=== PATIENT | male | born 1975 | race Caucasian/White ===

== ENCOUNTER 2016-12-11 13:12 | Emergency (ER) | payer OTHER ==
--- NOTE | 2016-12-11 14:20 | EDDOCDS ---
Nurse's Notes [facility] Name: Ananth Teran Age: 41 yrs Sex: Male : 1975 Arrival Date: 12/11/2016 Time: 13:12 Bed TR7 Private MD: Vielka Goldstein Diagnosis: Acute pharyngitis, unspecified Presentation: 12/11 13:18 Presenting complaint: Patient states: Sore throat for about a week, cough today, ck1 headaches. Risk factors: Stridor is not present. Drooling is not present. Shortness of breath is not present. Cellulitis is not present. Adult Sepsis Screening: The patient does not have new or worsening altered mentation. Patient's respiratory rate is less than 22. Systolic blood pressure is greater than 100. Patient has a qSOFA score of 0- Negative Sepsis Screen. Suicide/Homicide risk assessment- the patient denies having any suicidal and/or homicidal ideations and does not present with any other emotional, behavioral or mental health complaints. Status: Patient is not a eligibility services representative or dependent. Transition of care: patient was not received from another setting of care. 13:18 Method Of Arrival: Walkin/Carried/Asstd ck1 13:18 Acuity: LOR Level 4 ck1 Triage Assessment: 13:22 General: Appears uncomfortable, Behavior is cooperative. Pain: Location: throat Pain ck1 currently is 6 out of 10 on a pain scale. HIV screening NA for this visit Offered previously. Neurological: No deficits noted. EENT: Reports pain in throat. Respiratory: Airway is patent Respiratory effort is even, unlabored. Derm: Skin is pink, warm & dry. Historical: - Allergies: Codeine Sulfate; MMR immunization; - Home Meds: 1. none - PMHx: none; - PSHx: jaw wired shut; - Social history: Smoking status: Patient states was never smoker of tobacco. No barriers to communication noted, The patient speaks fluent Korean. - Family history: Not pertinent. - : The pt / caregiver states he / she is not on anticoagulants. Home medication list is obtained from the patient. - Exposure Risk Screening:: None identified. Screenin:18 Screening information is obtained from the patient. Fall risk: No risks identified. ck1 Assistance ADL's: requires no assistance with activities of daily living. Abuse/DV Screen: The patient / caregiver reports he/she is: not in a situation that causes fear, pain or injury. Nutritional screening: No deficits noted. Advance Directives: Currently, there is no health care proxy. home support is adequate. Assessment: 14:19 General: Appears in no apparent distress, comfortable, Behavior is appropriate for age, ck1 cooperative. Neurological: Level of Consciousness is awake, alert, obeys commands, Oriented to person, place, time. Respiratory: Airway is patent Respiratory effort is unlabored, Respiratory pattern is regular, symmetrical. Derm: Skin is pink, warm & dry. Vital Signs: 13:16 BP 144 / 79; Pulse 98; Resp 18 S; Temp 97.9(O); Pulse Ox 99% on R/A; Weight 64.86 kg gr2 (R); Height 5 ft. 8 in. (172.72 cm) (M); Pain 5/10; 13:16 Body Mass Index 21.74 (64.86 kg, 172.72 cm) gr2 Vitals: 13:16 Log In Time: December 11, 2016 at 13:16. gr2 13:53 Strep Screen is obtained and tested: Negative, a GATSNEG culture is ordered in [facility] and sent. ED Course: 13:14 Patient visited by Tom Marc. gr2 13:14 Patient moved to Waiting gr2 13:15 Vielka Goldstein is Private Physician. gr2 13:18 Patient visited by Tom Marc. gr2 13:18 Patient moved to Pre RCE gr2 13:20 Triage Initiated ck1 13:23 Patient visited by Carley Dominguez,OZIEL. ck1 13:23 Patient moved to Triage 3 ck1 13:32 [facility]ant[facility]-C [facility] dt4 13:32 Abbey Hunt MD is Attending Physician. dt4 13:32 Patient visited by Elsa Alcantar PA-C. dt4 13:54 Patient visited by Carley Dominguez,OZIEL. ck1 13:54 GATS (NEGATIVE STREP SCREEN) Sent. ck1 14:07 Patient name changed from Ananth\S\\S\Parul\S\ to Ananth\S\Christopher\S\Parul. EDMS 14:08 [facility] Payment Agreement was scanned into [employer] and attached to record. lg 14:09 [facility] is Referral Physician. dt4 14:18 Patient moved to TR7 ck1 14:18 The patient / caregiver is instructed regarding the plan of care and ED course. ck1 14:18 No IV's were initiated during this patient's visit. No procedures done that require ck1 assistance. Order Results: There are currently no results for this order. Outcome: 14:09 Discharge ordered by Provider. dt4 14:18 Discharge Assessment: Patient awake, alert and oriented x 3. No cognitive and/or ck1 functional deficits noted. Patient verbalized understanding of disposition instructions. patient administered narcotics - no. The following High Risk Discharge criteria are identified: None. Discharged to home ambulatory. Condition: stable. Discharge instructions given to patient, Instructed on discharge instructions, follow up and referral plans. medication usage, Demonstrated understanding of instructions, medications, Pt was receptive of discharge instructions/ teaching. Prescriptions given X 1. No special radiology studies were completed. Property :Personal belongings accompany Pt. 14:19 Patient left the ED. ck1 Signatures: Dispatcher [employer] [facility] Dhara Huertas, RN RN Mirtha Alonso, Reg Reg Carley Amaral RN RN ck1 Tmo Marc gr2 Elsa Alcantar PA-C PA-C dt4 [facility]
--- NOTE | 2016-12-11 14:20 | EDDOCDS ---
Physician Documentation [facility] Name: Ananth Teran Age: 41 yrs Sex: Male : 1975 Arrival Date: 12/11/2016 Time: 13:12 Bed TR7 Private MD: Vielka Goldstein Disposition: 12/11/16 14:09 Discharged to Home/Self Care. Impression: Acute pharyngitis, unspecified. - Condition is Stable. - Discharge Instructions: Sore Throat. - Prescriptions for magic mouthwash Mucous Membrane Solution - as directed 5 milliliters by ORAL route 3-4 times daily As needed GARGLE, SWISH, SPIT. MAALOX, VISCOUS LIDOCAINE, LIQUID BENADRYL. 1:1:1; 237 milliliter. - Medication Reconciliation, Local Pharmacy Hours form. - Follow up: Emergency Department; When: As needed; Reason: Worsening of conditions. Follow up: [facility]; When: Call to arrange an appointment; Reason: Recheck today's complaints, Continuance of care, To establish care. - Problem is new. - Symptoms are unchanged. - Notes: YOUR STREP SCREEN WAS NEGATIVE TODAY. YOUR SYMPTOMS ARE MOST LIKELY CAUSED BY A VIRUS. PLEASE FOLLOW UP WITH YOUR PRIMARY CARE PROVIDER NEXT WEEK TO RECHECK YOUR SYMPTOMS. TYLENOL/MOTRIN DIRECTED, NEEDED FOR PAIN/FEVER. Historical: - Allergies: Codeine Sulfate; MMR immunization; - Home Meds: 1. none - PMHx: none; - PSHx: jaw wired shut; - Social history: Smoking status: Patient states was never smoker of tobacco. No barriers to communication noted, The patient speaks fluent Swiss. - Family history: Not pertinent. - : The pt / caregiver states he / she is not on anticoagulants. Home medication list is obtained from the patient. - Exposure Risk Screening:: None identified. Vital Signs: 12/11 13:16 BP 144 / 79; Pulse 98; Resp 18 S; Temp 97.9(O); Pulse Ox 99% on R/A; Weight 64.86 kg / gr2 142.99 lbs (R); Height 5 ft. 8 in. (172.72 cm) (M); Pain 5/10; 13:16 Body Mass Index 21.74 (64.86 kg, 172.72 cm) gr2 MDM: 13:32 Strep Screen, Nursing ordered. dt4 13:38 Financial registration complete. lg 13:54 GATS (NEGATIVE STREP SCREEN) Ordered. EDMS 14:08 [facility] Payment Agreement was scanned into [employer] and attached to record. lg Signatures: Dispatcher [employer]Host EDMS Mirtha Lopez, Reg Reg lg Carley DominguezRN RN ck1 Elsa Alcantar, JARED COLEMAN dt4 The chart was reviewed and I authenticate all verbal orders and agree with the evaluation and treatment provided.Attachments: 14:08 [facility] Payment Agreement lg MTDD
--- NOTE | 2016-12-13 15:21 | EDDOCDS ---
Physician Documentation [facility] Name: Ananth Teran Age: 41 yrs Sex: Male : 1975 Arrival Date: 12/11/2016 Time: 13:12 Bed TR7 Private MD: Vielka Goldstein Disposition: 12/11/16 14:09 Discharged to Home/Self Care. Impression: Acute pharyngitis, unspecified. - Condition is Stable. - Discharge Instructions: Sore Throat. - Prescriptions for magic mouthwash Mucous Membrane Solution - as directed 5 milliliters by ORAL route 3-4 times daily As needed GARGLE, SWISH, SPIT. MAALOX, VISCOUS LIDOCAINE, LIQUID BENADRYL. 1:1:1; 237 milliliter. - Medication Reconciliation, Local Pharmacy Hours form. - Follow up: Emergency Department; When: As needed; Reason: Worsening of conditions. Follow up: [facility]; When: Call to arrange an appointment; Reason: Recheck today's complaints, Continuance of care, To establish care. - Problem is new. - Symptoms are unchanged. - Notes: YOUR STREP SCREEN WAS NEGATIVE TODAY. YOUR SYMPTOMS ARE MOST LIKELY CAUSED BY A VIRUS. PLEASE FOLLOW UP WITH YOUR PRIMARY CARE PROVIDER NEXT WEEK TO RECHECK YOUR SYMPTOMS. TYLENOL/MOTRIN DIRECTED, NEEDED FOR PAIN/FEVER. Historical: - Allergies: Codeine Sulfate; MMR immunization; - Home Meds: 1. none - PMHx: none; - PSHx: jaw wired shut; - Social history: Smoking status: Patient states was never smoker of tobacco. No barriers to communication noted, The patient speaks fluent Dutch. - Family history: Not pertinent. - : The pt / caregiver states he / she is not on anticoagulants. Home medication list is obtained from the patient. - Exposure Risk Screening:: None identified. Vital Signs: 12/11 13:16 BP 144 / 79; Pulse 98; Resp 18 S; Temp 97.9(O); Pulse Ox 99% on R/A; Weight 64.86 kg / gr2 142.99 lbs (R); Height 5 ft. 8 in. (172.72 cm) (M); Pain 5/10; 13:16 Body Mass Index 21.74 (64.86 kg, 172.72 cm) gr2 MDM: 13:32 Strep Screen, Nursing ordered. dt4 13:38 Financial registration complete. lg 13:54 GATS (NEGATIVE STREP SCREEN) Ordered. EDMS 14:08 [facility] Payment Agreement was scanned into [employer] and attached to record. lg 12/13 08:51 T-Sheet-- Draft Copy was scanned into [employer] and attached to record. lg Signatures: Dispatcher [employer] EDIN Mirtha Lopez, Reg Reg lg Carley DominguezRN RN ck1 Elsa Alcantar, JARED PAKrystle dt4 The chart was reviewed and I authenticate all verbal orders and agree with the evaluation and treatment provided.Attachments: 12/11 14:08 [facility] Payment Agreement lg 12/13 08:51 T-Sheet-- Draft Copy lg Chart Complete MTDD
--- NOTE | 2016-12-13 15:21 | EDDOCDS ---
Nurse's Notes [facility] Name: Ananth Teran Age: 41 yrs Sex: Male : 1975 Arrival Date: 12/11/2016 Time: 13:12 Bed TR7 Private MD: Vielka Goldstein Diagnosis: Acute pharyngitis, unspecified Presentation: 12/11 13:18 Presenting complaint: Patient states: Sore throat for about a week, cough today, ck1 headaches. Risk factors: Stridor is not present. Drooling is not present. Shortness of breath is not present. Cellulitis is not present. Adult Sepsis Screening: The patient does not have new or worsening altered mentation. Patient's respiratory rate is less than 22. Systolic blood pressure is greater than 100. Patient has a qSOFA score of 0- Negative Sepsis Screen. Suicide/Homicide risk assessment- the patient denies having any suicidal and/or homicidal ideations and does not present with any other emotional, behavioral or mental health complaints. Status: Patient is not a manager financial services or dependent. Transition of care: patient was not received from another setting of care. 13:18 Method Of Arrival: Walkin/Carried/Asstd ck1 13:18 Acuity: LOR Level 4 ck1 Triage Assessment: 13:22 General: Appears uncomfortable, Behavior is cooperative. Pain: Location: throat Pain ck1 currently is 6 out of 10 on a pain scale. HIV screening NA for this visit Offered previously. Neurological: No deficits noted. EENT: Reports pain in throat. Respiratory: Airway is patent Respiratory effort is even, unlabored. Derm: Skin is pink, warm & dry. Historical: - Allergies: Codeine Sulfate; MMR immunization; - Home Meds: 1. none - PMHx: none; - PSHx: jaw wired shut; - Social history: Smoking status: Patient states was never smoker of tobacco. No barriers to communication noted, The patient speaks fluent Portuguese. - Family history: Not pertinent. - : The pt / caregiver states he / she is not on anticoagulants. Home medication list is obtained from the patient. - Exposure Risk Screening:: None identified. Screenin:18 Screening information is obtained from the patient. Fall risk: No risks identified. ck1 Assistance ADL's: requires no assistance with activities of daily living. Abuse/DV Screen: The patient / caregiver reports he/she is: not in a situation that causes fear, pain or injury. Nutritional screening: No deficits noted. Advance Directives: Currently, there is no health care proxy. home support is adequate. Assessment: 14:19 General: Appears in no apparent distress, comfortable, Behavior is appropriate for age, ck1 cooperative. Neurological: Level of Consciousness is awake, alert, obeys commands, Oriented to person, place, time. Respiratory: Airway is patent Respiratory effort is unlabored, Respiratory pattern is regular, symmetrical. Derm: Skin is pink, warm & dry. Vital Signs: 13:16 BP 144 / 79; Pulse 98; Resp 18 S; Temp 97.9(O); Pulse Ox 99% on R/A; Weight 64.86 kg gr2 (R); Height 5 ft. 8 in. (172.72 cm) (M); Pain 5/10; 13:16 Body Mass Index 21.74 (64.86 kg, 172.72 cm) gr2 Vitals: 13:16 Log In Time: December 11, 2016 at 13:16. gr2 13:53 Strep Screen is obtained and tested: Negative, a GATSNEG culture is ordered in [facility] and sent. ED Course: 13:14 Patient visited by Tom Marc. gr2 13:14 Patient moved to Waiting gr2 13:15 Vielka Goldstein is Private Physician. gr2 13:18 Patient visited by Tom Marc. gr2 13:18 Patient moved to Pre RCE gr2 13:20 Triage Initiated ck1 13:23 Patient visited by Carley Dominguez,OZIEL. ck1 13:23 Patient moved to Triage 3 ck1 13:32 Elsa Alcantar PA-C [facility]. dt4 13:32 Abbey Hunt MD is Attending Physician. dt4 13:32 Patient visited by Elsa Alcantar PA-C. dt4 13:54 Patient visited by Carley Dominguez,OZIEL. ck1 13:54 GATS (NEGATIVE STREP SCREEN) Sent. ck1 14:07 Patient name changed from Ananth\S\\S\Parul\S\ to Ananth\S\Christopher\S\Parul. EDMS 14:08 [facility] Payment Agreement was scanned into [email or web address] and attached to record. lg 14:09 [facility] is Referral Physician. dt4 14:18 Patient moved to TR ck1 14:18 The patient / caregiver is instructed regarding the plan of care and ED course. ck1 14:18 No IV's were initiated during this patient's visit. No procedures done that require ck1 assistance. 12/13 08:51 T-Sheet-- Draft Copy was scanned into [email or web address] and attached to record. lg Order Results: Lab Order: GATS (NEGATIVE STREP SCREEN); SPEC'M 12/11/16 13:12 Test: GATS CULTURE (NEG STREP SCR); Value: GATS RESULT NEGATIVE FOR STREP PYOGENES (GROUP A); Status: F Test: GATS CULTURE (NEG STREP SCR); Value: <EXTERNAL COMMENT eCWMed> FULL REPORT IN LAB NOTES (eCW and Medent).; Status: F Test: GATS CULTURE (NEG STREP SCR); Value: ORGANISM 1: STREP (GROUP F) CONSTELLATUS; Status: F Test: GATS CULTURE (NEG STREP SCR); Value: STREP (GROUP F) CONSTELLATUS; Status: F Test: GATS CULTURE (NEG STREP SCR); Value: QUANTITY OF GROWTH MODERATE; Status: F Outcome: 12/11 14:09 Discharge ordered by Provider. dt4 14:18 Discharge Assessment: Patient awake, alert and oriented x 3. No cognitive and/or ck1 functional deficits noted. Patient verbalized understanding of disposition instructions. patient administered narcotics - no. The following High Risk Discharge criteria are identified: None. Discharged to home ambulatory. Condition: stable. Discharge instructions given to patient, Instructed on discharge instructions, follow up and referral plans. medication usage, Demonstrated understanding of instructions, medications, Pt was receptive of discharge instructions/ teaching. Prescriptions given X 1. No special radiology studies were completed. Property :Personal belongings accompany Pt. 14:19 Patient left the ED. ck1 Signatures: Dispatcher [employer] JENNIFERDE Dhara Huertas, RN Mirtha Higginbotham mcp, Reg Reg lg Carley Dominguez RN RN ck1 Tom Marc gr2 Elsa Alcantar, JARED PAKrystle dt4 Chart Complete MTDD
--- NOTE | 2016-12-13 15:21 | EDDOCDS ---
Physician Documentation [facility] Name: Ananth Teran Age: 41 yrs Sex: Male : 1975 Arrival Date: 12/11/2016 Time: 13:12 Bed TR7 Private MD: Vielka Goldstein Disposition: 12/11/16 14:09 Discharged to Home/Self Care. Impression: Acute pharyngitis, unspecified. - Condition is Stable. - Discharge Instructions: Sore Throat. - Prescriptions for magic mouthwash Mucous Membrane Solution - as directed 5 milliliters by ORAL route 3-4 times daily As needed GARGLE, SWISH, SPIT. MAALOX, VISCOUS LIDOCAINE, LIQUID BENADRYL. 1:1:1; 237 milliliter. - Medication Reconciliation, Local Pharmacy Hours form. - Follow up: Emergency Department; When: As needed; Reason: Worsening of conditions. Follow up: [facility]; When: Call to arrange an appointment; Reason: Recheck today's complaints, Continuance of care, To establish care. - Problem is new. - Symptoms are unchanged. - Notes: YOUR STREP SCREEN WAS NEGATIVE TODAY. YOUR SYMPTOMS ARE MOST LIKELY CAUSED BY A VIRUS. PLEASE FOLLOW UP WITH YOUR PRIMARY CARE PROVIDER NEXT WEEK TO RECHECK YOUR SYMPTOMS. TYLENOL/MOTRIN DIRECTED, NEEDED FOR PAIN/FEVER. Historical: - Allergies: Codeine Sulfate; MMR immunization; - Home Meds: 1. none - PMHx: none; - PSHx: jaw wired shut; - Social history: Smoking status: Patient states was never smoker of tobacco. No barriers to communication noted, The patient speaks fluent Singaporean. - Family history: Not pertinent. - : The pt / caregiver states he / she is not on anticoagulants. Home medication list is obtained from the patient. - Exposure Risk Screening:: None identified. Vital Signs: 12/11 13:16 BP 144 / 79; Pulse 98; Resp 18 S; Temp 97.9(O); Pulse Ox 99% on R/A; Weight 64.86 kg / gr2 142.99 lbs (R); Height 5 ft. 8 in. (172.72 cm) (M); Pain 5/10; 13:16 Body Mass Index 21.74 (64.86 kg, 172.72 cm) gr2 MDM: 13:32 Strep Screen, Nursing ordered. dt4 13:38 Financial registration complete. lg 13:54 GATS (NEGATIVE STREP SCREEN) Ordered. EDMS 14:08 [facility] Payment Agreement was scanned into [employer] and attached to record. lg 12/13 08:51 T-Sheet-- Draft Copy was scanned into [employer] and attached to record. lg Signatures: Dispatcher [employer] EDCA Mirtha Lopez, Reg Reg lg Carley DominguezRN RN ck1 Elsa Alcantar, JARED PAKrystle dt4 The chart was reviewed and I authenticate all verbal orders and agree with the evaluation and treatment provided.Attachments: 12/11 14:08 [facility] Payment Agreement lg 12/13 08:51 T-Sheet-- Draft Copy lg Chart Complete MTDD
== END 2016-12-11 14:19 | disposition home or self-care (01) ==
LOC: M ED 13:12
DX: J02.9 Acute pharyngitis, unspecified (principal); Z88.5 Allergy status to narcotic agent; Z88.7 Allergy status to serum and vaccine

== ENCOUNTER → 2017-06-30 | Outpatient (REF) | payer OTHER ==
[2017-06-30 18:41] LABS: ANION GAP 5 MEQ/L (8-16); BLOOD UREA NITROGEN 12 MG/DL (7-18); CALCIUM LEVEL 9.1 MG/DL (8.5-10.1); CARBON DIOXIDE LEVEL 31 MEQ/L (21-32); CHLORIDE LEVEL 105 MEQ/L (98-107); CREATININE FOR GFR 0.68 MG/DL (0.70-1.30); GLOMERULAR FILTRATION RATE > 60.0 (>60); GLUCOSE, FASTING 85 MG/DL (70-105); POTASSIUM SERUM 4.3 MEQ/L (3.5-5.1); SODIUM LEVEL 141 MEQ/L (136-145)
== END ==
LOC: M SFHCPLAZ 16:57
PROVIDERS: ATTEND Family Medicine
DX: Z71.1 Person with feared health complaint in whom no diagnosis is made (principal); R35.8 Other polyuria; R35.1 Nocturia

== ENCOUNTER → 2017-09-08 | Outpatient (REF) | payer OTHER ==
[2017-09-08 12:39] LABS: INR 0.94
[2017-09-08 13:44] LABS: ALBUMIN/GLOBULIN RATIO 1.25 (1.00-1.93); ALKALINE PHOSPHATASE 67 U/L (45-117); ALT/SGPT 24 U/L (12-78); AST/SGOT 21 U/L (7-37); BILIRUBIN,DIRECT 0.3 MG/DL (0.0-0.2); BILIRUBIN,TOTAL 1.3 MG/DL (0.2-1.0); GAMMA GLUTAMYLTRANSPEPTIDASE 22 U/L (15-85); TOTAL PROTEIN 7.2 GM/DL (6.4-8.2)
[2017-09-11 00:06] LABS: HCV RNA NAA QUALITATIVE Negative (Negative)
== END ==
LOC: M SFHCPLAZ 10:44
PROVIDERS: ATTEND Family Medicine
DX: E80.6 Other disorders of bilirubin metabolism (principal)

== ENCOUNTER → 2017-09-17 | Outpatient (REF) | payer OTHER ==
[2017-09-17 15:49] LABS: OSMOLALITY URINE 862 MOSM/KG (500-800)
[2017-09-17 15:57] LABS: ALBUMIN 4.3 GM/DL (3.2-5.2); ALBUMIN/GLOBULIN RATIO 1.3 (1.00-1.93); BILIRUBIN,DIRECT 0.4 MG/DL (0.0-0.2); BILIRUBIN,TOTAL 2.6 MG/DL (0.2-1.0); TOTAL PROTEIN 7.6 GM/DL (6.4-8.2)
[2017-09-17 22:42] LABS: BACTERIA, URINE NONE SEEN; RBC, URINE 0-1 /hpf (0-3); SQUAMOUS EPITHELIAL CELL URINE NONE SEEN /hpf (SMALL AMT); WBC, URINE 0-1 /hpf (0-3)
[2017-09-17 22:43] LABS: CALCIUM OXALATE CRYSTALS,URINE SMALL AMOUNT /hpf; HYALINE CAST, URINE NONE SEEN /lpf (0-1); MICROSCOPIC EXAM PERFORMED
== END ==
LOC: M SFHCPLAZ 12:36
PROVIDERS: ATTEND Family Medicine
DX: E80.6 Other disorders of bilirubin metabolism (principal); R35.1 Nocturia

== ENCOUNTER → 2017-10-06 | Outpatient (REF) | payer MEDICAID ==
[2017-10-06 16:32] LABS: CALCIUM LEVEL 9.3 MG/DL (8.5-10.1)
== END ==
LOC: M SFHCPLAZ 13:18
PROVIDERS: ATTEND Family Medicine
DX: R35.1 Nocturia (principal); E80.6 Other disorders of bilirubin metabolism

== ENCOUNTER → 2017-10-09 | Outpatient (CLI) | payer MEDICAID, OTHER ==
--- NOTE | 2017-10-09 16:21 | REP ---
RENAL AND BLADDER ULTRASOUND: Real-time sonographic evaluation of the kidneys are performed and demonstrates both kidneys to be normal in size and echotexture, right kidney measuring 10.4 x 5.0 x 5.0 cm and left kidney 11.2 x 5.4 x 4.9 cm. There is no hydronephrosis bilaterally. There is a calculus in the mid right renal collecting system measuring 9 mm in diameter. There is a 9 mm cyst in the midright kidney. Two cysts are seen in the mid left kidney measuring 8 x 4 x 11 mm and 6 x 3 x 6 mm. Urinary bladder is not well distended and appears grossly unremarkable. IMPRESSION: No hydronephrosis. Small cyst in each kidney. There appears to be a calculus in the mid right renal collecting system 8 mm in diameter. Signed by Esvin Gonzalez MD 10/09/2017 08:43 P
== END ==
LOC: M RAD 14:29
PROVIDERS: ATTEND Family Medicine
DX: R35.1 Nocturia (principal); N28.1 Cyst of kidney, acquired

== ENCOUNTER → 2017-11-20 | Outpatient (CLI) | payer OTHER ==
[2017-11-22 08:07] LABS: HAPTOGLOBIN 58 mg/dL (34-200)
[2017-11-23 00:07] LABS: ANTI-SMOOTH MUSCLE ANTIBODY 28 Units (0-19)
== END ==
LOC: M SMT 12:55
DX: E80.6 Other disorders of bilirubin metabolism (principal)
CPT/HCPCS: 83010

== ENCOUNTER → 2017-12-01 | Outpatient (CLI) | payer OTHER | LOC: M RAD 12:36 | DX: N20.0 Calculus of kidney (principal) | CPT/HCPCS: 74176 ==

== ENCOUNTER → 2017-12-04 | Outpatient (CLI) | payer OTHER | LOC: M RAD 08:58 | DX: E80.6 Other disorders of bilirubin metabolism (principal) ==

== ENCOUNTER → 2018-01-01 | Outpatient (CLI) | payer OTHER | LOC: M SLEEP 19:41 | DX: G47.30 Sleep apnea, unspecified (principal) ==

== ENCOUNTER → 2018-01-13 | Outpatient (CLI) | payer OTHER | LOC: M RAD 11:13 | DX: I86.1 Scrotal varices (principal) | CPT/HCPCS: 76870 ==

== ENCOUNTER → 2018-02-01 | Outpatient (CLI) | payer OTHER | LOC: M SLEEP 20:00 | DX: G47.33 Obstructive sleep apnea (adult) (pediatric) (principal) | CPT/HCPCS: 95811 ==

== ENCOUNTER → 2018-04-21 | Outpatient (CLI) | payer OTHER ==
[2018-04-21 15:38] LABS: HEMATOCRIT 45.1 % (42.0-52.0); HEMOGLOBIN 16.2 g/dl (13.5-17.5); MEAN CORPUSCULAR HEMOGLOBIN 31.6 pg (27.0-33.0); MEAN CORPUSCULAR HGB CONC 35.9 g/dl (32.0-36.5); MEAN CORPUSCULAR VOLUME 87.9 fl (80.0-96.0); PLATELET COUNT, AUTOMATED 180 10^3/uL (150-450); RED BLOOD COUNT 5.13 10^6/uL (4.30-6.10); RED CELL DISTRIBUTION WIDTH 12.1 % (11.5-14.5); WHITE BLOOD COUNT 4.3 10^3/uL (4.0-10.0)
[2018-04-21 15:48] LABS: INR 0.95; PROTHROMBIN TIME 12.8 SECONDS (12.1-14.4)
[2018-04-21 15:49] LABS: PARTIAL THROMBOPLASTIN TIME 29.4 SECONDS (25.4-37.6)
[2018-04-21 16:04] LABS: ALBUMIN 3.9 GM/DL (3.2-5.2); ALBUMIN/GLOBULIN RATIO 1.18 (1.00-1.93); ALKALINE PHOSPHATASE 79 U/L (45-117); ALT/SGPT 30 U/L (12-78); AST/SGOT 25 U/L (7-37); BILIRUBIN,DIRECT 0.3 MG/DL (0.0-0.2); BILIRUBIN,TOTAL 1.6 MG/DL (0.2-1.0); GAMMA GLUTAMYLTRANSPEPTIDASE 24 U/L (15-85); LDH LACTATE DEHYDROGENASE 168 U/L (87-241); TOTAL PROTEIN 7.2 GM/DL (6.4-8.2)
[2018-04-22 10:55] LABS: HEPATITIS B SURFACE ANTIBODY NEGATIVE (POSITIVE)
[2018-04-22 11:00] LABS: HEPATITIS B SURFACE ANTIGEN NEGATIVE (NEGATIVE)
[2018-04-22 11:18] LABS: CONTROL LINE HPYORI INT CTR LINE PRESENT; H PYLORI QUALITATIVE IgG NEGATIVE (NEGATIVE)
[2018-04-22 11:27] LABS: HEPATITIS C VIRUS ABY INDEX 0.1 INDEX (<0.8)
== END ==
LOC: M LAB 14:57
DX: R94.5 Abnormal results of liver function studies (principal)
CPT/HCPCS: 82977

== ENCOUNTER → 2018-10-29 | Outpatient (REF) | payer OTHER ==
[2018-10-29 18:00] LABS: ALBUMIN 4.4 GM/DL (3.2-5.2); ALT/SGPT 20 U/L (12-78); BILIRUBIN,TOTAL 2.5 MG/DL (0.2-1.0); BLOOD UREA NITROGEN 12 MG/DL (7-18); CALCIUM LEVEL 9.1 MG/DL (8.5-10.1); CARBON DIOXIDE LEVEL 30 MEQ/L (21-32); CHLORIDE LEVEL 105 MEQ/L (98-107); CREATININE FOR GFR 0.74 MG/DL (0.70-1.30); GLOMERULAR FILTRATION RATE > 60.0 (>60); GLUCOSE, FASTING 79 MG/DL (70-100); SODIUM LEVEL 140 MEQ/L (136-145); TOTAL PROTEIN 7.5 GM/DL (6.4-8.2)
[2018-10-29 18:02] LABS: HEMATOCRIT 47.5 % (42.0-52.0); HEMOGLOBIN 16.7 g/dl (13.5-17.5); MEAN CORPUSCULAR HEMOGLOBIN 31.7 pg (27.0-33.0); MEAN CORPUSCULAR HGB CONC 35.2 g/dl (32.0-36.5); MEAN CORPUSCULAR VOLUME 90.1 fl (80.0-96.0); PLATELET COUNT, AUTOMATED 175 10^3/uL (150-450); RED BLOOD COUNT 5.27 10^6/uL (4.30-6.10)
[2018-11-01 00:06] LABS: ANTI-SMOOTH MUSCLE ANTIBODY 18 Units (0-19)
== END ==
LOC: M SFHCPLAZ 14:54
PROVIDERS: ATTEND Family Medicine
DX: S91.331A Puncture wound without foreign body, right foot, initial encounter (principal); E80.6 Other disorders of bilirubin metabolism; W18.30XA Fall on same level, unspecified, initial encounter; Y92.009 Unspecified place in unspecified non-institutional (private) residence as the place of occurrence of the external cause

== ENCOUNTER → 2019-02-23 | Outpatient (REF) | payer OTHER ==
[2019-02-23 12:22] LABS: C REACTIVE PROTEIN QUANTITATIV < 0.30 MG/DL (0.00-0.30); CHOLESTEROL LEVEL 226 MG/DL (<200); CHOLESTEROL RISK RATIO 4.264 (<5); FREE T3 3.3 PG/ML (2.2-4.0); FREE T4 0.76 NG/DL (0.76-1.46); HDL CHOLESTEROL 53 MG/DL (>40); LDL CHOLESTEROL 148 MG/DL (<100); NON-HDL-C 173 MG/DL; NT-PRO BNP 14 PG/ML (<125); THYROID STIMULATING HORMONE 0.968 uIU/ML (0.358-3.740); TRIGLYCERIDES LEVEL 123 MG/DL (<150)
== END ==
LOC: M SFHCPLAZ 09:12
PROVIDERS: ATTEND Family Medicine
DX: R06.09 Other forms of dyspnea (principal); R00.2 Palpitations; R07.9 Chest pain, unspecified

== ENCOUNTER 2019-11-23 08:00 | Emergency (ER) | payer OTHER ==
[2019-11-23] MEDS ORDERED: NS 1,000 ML IV ONE (08:30)
--- NOTE | 2019-11-23 09:14 | REP ---
Abdominal right upper quadrant ultrasound for right upper quadrant pain, flank pain and dark urine: There is no cholelithiasis, gallbladder wall thickening or pericholecystic fluid. There is tenderness to transducer pressure over the gallbladder. There is no intrahepatic or extrahepatic biliary duct dilatation. The common biliary duct measures 3 mm in diameter. The hepatic parenchyma is homogeneous and otherwise unremarkable. The visualized areas of the pancreas are unremarkable. Portions of the pancreas are obscured by bowel gas. The right kidney measures 11.2 x 6.0 x 5.0 cm and is normal size. The renal pelvis is mildly distended. This is nonspecific and could merely be secondary to a distended bladder. There are no renal calculi. There are no solid or cystic renal masses. There is no right upper quadrant ascites. Impression: There is no cholelithiasis. No evidence of cholecystitis by ultrasound. However, the gallbladder is tender to transducer pressure. No biliary duct dilatation. Mild distension of the renal pelvis, nonspecific. Electronically Signed by Esvin De La Fuente MD 11/23/2019 09:05 A
[2019-11-23 09:25] LABS: BASO % 0.5 % (0.0-1.0); EOS # 0.1 10^3/uL (0.0-0.5); EOS % 1.3 % (0.0-3.0); HEMATOCRIT 49.4 % (42.0-52.0); HEMOGLOBIN 17.3 g/dl (13.5-17.5); LYMPH # 1.4 10^3/uL (1.5-5.0); LYMPH % 25.6 % (24.0-44.0); MEAN CORPUSCULAR HEMOGLOBIN 31.6 pg (27.0-33.0); MEAN CORPUSCULAR VOLUME 90.3 fl (80.0-96.0); MONO # 0.3 10^3/uL (0.0-0.8); MONO % 6.1 % (0.0-5.0); NEUTROPHILS # 3.7 10^3/uL (1.5-8.5); NEUTROPHILS % 66.3 % (36.0-66.0); PLATELET COUNT, AUTOMATED 169 10^3/uL (150-450); RED BLOOD COUNT 5.47 10^6/uL (4.30-6.10); WHITE BLOOD COUNT 5.6 10^3/uL (4.0-10.0)
[2019-11-23 09:53] LABS: ALBUMIN 4.2 GM/DL (3.2-5.2); ALT/SGPT 18 U/L (12-78); AMYLASE 123 U/L (25-115); BILIRUBIN,DIRECT 0.3 MG/DL (0.0-0.2); BILIRUBIN,TOTAL 1.8 MG/DL (0.2-1.0); BLOOD UREA NITROGEN 9 MG/DL (7-18); CALCIUM LEVEL 9.1 MG/DL (8.5-10.1); CARBON DIOXIDE LEVEL 31 MEQ/L (21-32); CHLORIDE LEVEL 105 MEQ/L (98-107); CREATININE FOR GFR 0.77 MG/DL (0.70-1.30); GLOMERULAR FILTRATION RATE > 60.0 (>60); GLUCOSE, FASTING 90 MG/DL (70-100); LIPASE 274 U/L (73-393); SODIUM LEVEL 141 MEQ/L (136-145); TOTAL PROTEIN 7.2 GM/DL (6.4-8.2)
[2019-11-23] MEDS ORDERED: FLOM0.4C39 PO (10:35)
[2019-11-23] MEDS ORDERED: ONDA4TAB6 PO (10:35)
[2019-11-23] MEDS ORDERED: IBUP80TA PO (10:35)
--- NOTE | 2019-11-23 10:35 | REP ---
CT of the abdomen pelvis without IV or bowel contrast for right renal colic: Comparison is 12/01/2017. On the comparison study there was a 4 mm nonobstructing right renal calculus. On the study today this calculus has migrated into the right mid ureter to the L4 level. There is right hydronephrosis/hydroureter above the calculus. There are no other renal or ureteral calculi on the right on the left. No bladder calculi. No perinephric stranding. There is question of a right renal cyst as previously. The study is less sensitive in the absence of IV contrast. The visualized lung nolan are unremarkable. The unenhanced hepatic parenchyma, gallbladder, pancreas, spleen, adrenals and abdominal aorta are unremarkable. The bowel and mesentery are unremarkable. Pelvis: The appendix is unremarkable. There is no adenopathy or ascites. The pelvic bowel loops are unremarkable. Impression: There is a 4 mm calculus in the mid right ureter at the L4 level. There is hydronephrosis of the right ureter and right renal pelvis above the level of the calculus. Question small right renal cyst, as previously. Electronically Signed by Esvin De La Fuente MD 11/23/2019 10:27 A
[2019-11-23 10:43] VITALS: BP 123/78
[2019-11-23] MEDS ORDERED: KETOROLAC 30 MG/ML VIAL (J1885) IV ONE (10:45)
== END 2019-11-23 10:56 | disposition home or self-care (01) ==
LOC: M ED 08:00
DX: N20.1 Calculus of ureter (principal); N13.2 Hydronephrosis with renal and ureteral calculous obstruction; Z88.5 Allergy status to narcotic agent
CPT/HCPCS: 74176; 76705; 80048; 80076; 81001; 82150; 83690; 85025; 96361; 96374; 99284; J1885

== ENCOUNTER → 2019-12-23 | Outpatient (REF) | payer OTHER ==
[~2019-12-23] MED LIST: FLOM0.4C39 PO; IBUP80TA PO; ONDA4TAB6 PO
[2019-12-23 17:56] LABS: APPEARANCE, URINE CLEAR (CLEAR); BACTERIA, URINE AUTO 1+ (NEGATIVE); BILIRUBIN, URINE AUTO NEGATIVE (NEGATIVE); BLOOD, URINE BLOOD NEGATIVE (NEGATIVE); COLOR, URINE YELLOW (YELLOW); GLUCOSE, URINE (UA) AUTO NEGATIVE (NEGATIVE); KETONE, URINE AUTO NEGATIVE (NEGATIVE); LEUKOCYTE ESTERASE, URINE AUTO NEGATIVE (NEGATIVE); MUCUS, URINE SMALL (NEGATIVE); NITRITE, URINE AUTO NEGATIVE (NEGATIVE); PROTEIN, URINE AUTO NEGATIVE (NEGATIVE); RBC, URINE AUTO 5 /HPF (0-3); SPECIFIC GRAVITY URINE AUTO 1.006 (1.002-1.035); SQUAMOUS EPITHELIAL CELL UR AU 0 /HPF (0-6); UROBILINOGEN, URINE AUTO 0.2 mg/dL (0.0-2.0); WBC, URINE AUTO 3 /HPF (0-3)
== END ==
LOC: M SMT 17:13
PROVIDERS: ATTEND Nurse Practitioner Family
DX: N20.0 Calculus of kidney (principal)

== ENCOUNTER → 2019-12-23 | Outpatient (CLI) | payer OTHER ==
--- NOTE | 2019-12-23 19:42 | REPPI ---
KUB ABDOMEN AND PELVIS: KUB film of abdomen and pelvis performed. Bowel gas pattern is normal with no bowel obstruction. There is a calculus in the distal right ureter at the level of the mid pelvis which measures 3 to 4 mm in diameter. There is a phlebolith in the lateral left pelvis. There is partial sacralization of L5 on the right. IMPRESSION: 4 mm calculus distal right ureter. Electronically Signed by Esvin Gonzalez MD 12/28/2019 03:05 P
== END ==
LOC: M PLAIMG 14:59
PROVIDERS: ATTEND Nurse Practitioner Family
DX: N20.1 Calculus of ureter (principal)

== ENCOUNTER → 2019-12-29 | Outpatient (REF) | payer OTHER ==
[2019-12-29 17:25] LABS: HEMATOCRIT 44.9 % (42.0-52.0); HEMOGLOBIN 15.9 g/dl (13.5-17.5); MEAN CORPUSCULAR HEMOGLOBIN 32.1 pg (27.0-33.0); MEAN CORPUSCULAR HGB CONC 35.4 g/dl (32.0-36.5); MEAN CORPUSCULAR VOLUME 90.5 fl (80.0-96.0); PLATELET COUNT, AUTOMATED 167 10^3/uL (150-450); RED BLOOD COUNT 4.96 10^6/uL (4.30-6.10); WHITE BLOOD COUNT 5.6 10^3/uL (4.0-10.0)
[2019-12-29 17:28] LABS: APPEARANCE, URINE CLEAR (CLEAR); BACTERIA, URINE AUTO NEGATIVE (NEGATIVE); BILIRUBIN, URINE AUTO NEGATIVE (NEGATIVE); BLOOD, URINE BLOOD 2+ (NEGATIVE); COLOR, URINE STRAW (YELLOW); GLUCOSE, URINE (UA) AUTO NEGATIVE (NEGATIVE); KETONE, URINE AUTO NEGATIVE (NEGATIVE); LEUKOCYTE ESTERASE, URINE AUTO NEGATIVE (NEGATIVE); MUCUS, URINE SMALL (NEGATIVE); NITRITE, URINE AUTO NEGATIVE (NEGATIVE); PROTEIN, URINE AUTO NEGATIVE (NEGATIVE); RBC, URINE AUTO 1 /HPF (0-3); SPECIFIC GRAVITY URINE AUTO 1.002 (1.002-1.035); SQUAMOUS EPITHELIAL CELL UR AU 0 /HPF (0-6); UROBILINOGEN, URINE AUTO 0.2 mg/dL (0.0-2.0); WBC, URINE AUTO 1 /HPF (0-3)
[2019-12-29 17:41] LABS: INR 0.98; PROTHROMBIN TIME 12.7 SECONDS (11.8-14.0)
[2019-12-29 17:42] LABS: PARTIAL THROMBOPLASTIN TIME 27.7 SECONDS (25.0-38.4)
[2019-12-29 18:19] LABS: BLOOD UREA NITROGEN 8 MG/DL (7-18); CALCIUM LEVEL 9.4 MG/DL (8.5-10.1); CARBON DIOXIDE LEVEL 31 MEQ/L (21-32); CHLORIDE LEVEL 102 MEQ/L (98-107); CREATININE FOR GFR 0.64 MG/DL (0.70-1.30); GLOMERULAR FILTRATION RATE > 60.0 (>60); GLUCOSE, FASTING 69 MG/DL (70-100); POTASSIUM SERUM 3.6 MEQ/L (3.5-5.1); SODIUM LEVEL 138 MEQ/L (136-145)
== END ==
LOC: M LABSMT 15:46
PROVIDERS: ATTEND Nurse Practitioner Family
DX: Z01.818 Encounter for other preprocedural examination (principal); N20.0 Calculus of kidney

== ENCOUNTER → 2019-12-31 | Outpatient (REF) | payer OTHER | LOC: M SMT 16:50 | PROVIDERS: ATTEND Nurse Practitioner Family | DX: N20.0 Calculus of kidney (principal) ==

== ENCOUNTER → 2020-02-04 | Outpatient (REF) | payer OTHER, MEDICAID ==
[2020-02-04 12:52] LABS: BASO % 0.7 % (0.0-1.0); EOS # 0.1 10^3/uL (0.0-0.5); EOS % 1.9 % (0.0-3.0); HEMATOCRIT 45.7 % (42.0-52.0); HEMOGLOBIN 16.3 g/dl (13.5-17.5); LYMPH # 1.4 10^3/uL (1.5-5.0); LYMPH % 31.9 % (24.0-44.0); MEAN CORPUSCULAR HGB CONC 35.7 g/dl (32.0-36.5); MEAN CORPUSCULAR VOLUME 89.6 fl (80.0-96.0); MONO # 0.3 10^3/uL (0.0-0.8); MONO % 6.8 % (0.0-5.0); NEUTROPHILS # 2.5 10^3/uL (1.5-8.5); NEUTROPHILS % 58.5 % (36.0-66.0); PLATELET COUNT, AUTOMATED 178 10^3/uL (150-450); WHITE BLOOD COUNT 4.3 10^3/uL (4.0-10.0)
[2020-02-04 13:26] LABS: ALBUMIN 4.1 GM/DL (3.2-5.2); ALT/SGPT 27 U/L (12-78); BILIRUBIN,TOTAL 1.7 MG/DL (0.2-1.0); BLOOD UREA NITROGEN 7 MG/DL (7-18); CALCIUM LEVEL 9.2 MG/DL (8.5-10.1); CARBON DIOXIDE LEVEL 31 MEQ/L (21-32); CHLORIDE LEVEL 104 MEQ/L (98-107); CHOLESTEROL LEVEL 216 MG/DL (<200); CHOLESTEROL RISK RATIO 4.075 (<5); CREATININE FOR GFR 0.68 MG/DL (0.70-1.30); GLOMERULAR FILTRATION RATE > 60.0 (>60); GLUCOSE, FASTING 90 MG/DL (70-100); HDL CHOLESTEROL 53 MG/DL (>40); LDL CHOLESTEROL 123 MG/DL (<100); NON-HDL-C 163 MG/DL; POTASSIUM SERUM 4.1 MEQ/L (3.5-5.1); SODIUM LEVEL 139 MEQ/L (136-145); TOTAL PROTEIN 7.5 GM/DL (6.4-8.2); TRIGLYCERIDES LEVEL 200 MG/DL (<150)
== END ==
LOC: M LAB REF 12:37
PROVIDERS: ATTEND Physician Assistant
DX: Z13.228 Encounter for screening for other metabolic disorders (principal); Z13.220 Encounter for screening for lipoid disorders; Z87.442 Personal history of urinary calculi; J06.9 Acute upper respiratory infection, unspecified; M26.622 Arthralgia of left temporomandibular joint

== ENCOUNTER → 2020-08-03 | Outpatient (REF) | payer OTHER, MEDICAID ==
[2020-08-03 13:14] LABS: ALBUMIN 3.9 GM/DL (3.2-5.2); ALT/SGPT 28 U/L (12-78); BILIRUBIN,TOTAL 1.7 MG/DL (0.2-1.0); BLOOD UREA NITROGEN 8 MG/DL (7-18); CALCIUM LEVEL 9.4 MG/DL (8.5-10.1); CARBON DIOXIDE LEVEL 30 MEQ/L (21-32); CHLORIDE LEVEL 107 MEQ/L (98-107); CHOLESTEROL LEVEL 157 MG/DL (<200); CHOLESTEROL RISK RATIO 2.854 (<5); CREATININE FOR GFR 0.84 MG/DL (0.70-1.30); GLOMERULAR FILTRATION RATE > 60.0 (>60); GLUCOSE, FASTING 106 MG/DL (70-100); HDL CHOLESTEROL 55 MG/DL (>40); LDL CHOLESTEROL 81 MG/DL (<100); NON-HDL-C 102 MG/DL; POTASSIUM SERUM 4.2 MEQ/L (3.5-5.1); SODIUM LEVEL 142 MEQ/L (136-145); TRIGLYCERIDES LEVEL 104 MG/DL (<150)
[2020-08-03 17:12] LABS: TOTAL 25(OH) VITAMIN D 28.6 NG/ML (30.0-100.0)
== END ==
LOC: M LAB REF 12:28
PROVIDERS: ATTEND Physician Assistant
DX: E55.9 Vitamin D deficiency, unspecified (principal); E78.00 Pure hypercholesterolemia, unspecified; E80.4 Gilbert syndrome

== ENCOUNTER → 2021-02-14 | Outpatient (REF) | payer OTHER, MEDICAID ==
[2021-02-14 17:11] LABS: ALBUMIN 4.2 GM/DL (3.2-5.2); ALT/SGPT 34 U/L (12-78); BILIRUBIN,TOTAL 2.5 MG/DL (0.2-1.0); BLOOD UREA NITROGEN 11 MG/DL (7-18); CALCIUM LEVEL 9.1 MG/DL (8.5-10.1); CARBON DIOXIDE LEVEL 32 MEQ/L (21-32); CHLORIDE LEVEL 104 MEQ/L (98-107); CHOLESTEROL LEVEL 187 MG/DL (<200); CHOLESTEROL RISK RATIO 2.921 (<5); CREATININE FOR GFR 0.64 MG/DL (0.70-1.30); GLOMERULAR FILTRATION RATE > 60.0 (>60); GLUCOSE, FASTING 74 MG/DL (70-100); HDL CHOLESTEROL 64 MG/DL (>40); LDL CHOLESTEROL 115 MG/DL (<100); NON-HDL-C 123 MG/DL; POTASSIUM SERUM 4.3 MEQ/L (3.5-5.1); SODIUM LEVEL 140 MEQ/L (136-145); TOTAL PROTEIN 7.5 GM/DL (6.4-8.2); TRIGLYCERIDES LEVEL 41 MG/DL (<150)
[2021-02-14 17:34] LABS: TOTAL 25(OH) VITAMIN D 17.2 NG/ML (30.0-100.0)
== END ==
LOC: M LAB REF 16:01
PROVIDERS: ATTEND Physician Assistant
DX: E78.5 Hyperlipidemia, unspecified (principal)

== ENCOUNTER 2021-04-16 19:03 | Emergency (ER) | payer MEDICAID, OTHER ==
[~2021-04-16] VITALS: Ht 170.2 cm; Wt 64.2 kg
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
[2021-04-16] MEDS ORDERED: NAPR-837 PO (23:09)
[2021-04-16] MEDS ORDERED: CYCL-707 PO (23:09)
[2021-04-16 23:21] VITALS: BP 118/80
== END 2021-04-16 23:31 | disposition home or self-care (01) ==
LOC: M ED 19:03
DX: S50.312A Abrasion of left elbow, initial encounter (principal); S09.90XA Unspecified injury of head, initial encounter; S13.4XXA Sprain of ligaments of cervical spine, initial encounter; W19.XXXA Unspecified fall, initial encounter; Y92.89 Other specified places as the place of occurrence of the external cause; Y93.55 Activity, bike riding; Y99.9 Unspecified external cause status; Z88.5 Allergy status to narcotic agent

== ENCOUNTER → 2021-06-15 | Outpatient (CLI) | payer OTHER ==
[~2021-06-15] MED LIST changes: +CYCL-707 PO; +NAPR-837 PO
[2021-06-15 16:38] LABS: APPEARANCE, URINE CLEAR (CLEAR); BACTERIA, URINE AUTO NEGATIVE (NEGATIVE); BILIRUBIN, URINE AUTO NEGATIVE (NEGATIVE); BLOOD, URINE BLOOD NEGATIVE (NEGATIVE); CALCIUM OXALATE CRYSTALS SMALL; COLOR, URINE YELLOW (YELLOW); GLUCOSE, URINE (UA) AUTO NEGATIVE (NEGATIVE); KETONE, URINE AUTO TRACE mg/dL (NEGATIVE); LEUKOCYTE ESTERASE, URINE AUTO NEGATIVE (NEGATIVE); MUCUS, URINE SMALL (NEGATIVE); NITRITE, URINE AUTO NEGATIVE (NEGATIVE); PROTEIN, URINE AUTO NEGATIVE (NEGATIVE); RBC, URINE AUTO 2 /HPF (0-3); SPECIFIC GRAVITY URINE AUTO 1.024 (1.002-1.035); SQUAMOUS EPITHELIAL CELL UR AU 0 /HPF (0-6); WBC, URINE AUTO 1 /HPF (0-3)
[2021-06-15 17:43] LABS: BILIRUBIN,DIRECT 0.4 MG/DL (0.0-0.2)
== END ==
LOC: M LAB 15:24
PROVIDERS: ATTEND Physician Assistant
DX: E80.4 Gilbert syndrome (principal); R32 Unspecified urinary incontinence

== ENCOUNTER → 2022-07-09 | Outpatient (CLI) | payer OTHER | LOC: M PLALAB 12:22 | PROVIDERS: ATTEND Allergy & Immunology Allergy | DX: T78.1XXA Other adverse food reactions, not elsewhere classified, initial encounter (principal) ==

== ENCOUNTER → 2025-01-14 | Outpatient (CLI) | payer OTHER ==
[~2025-01-14] MED LIST changes: +ONDA-282 PO; -ONDA4TAB6 PO
[2025-01-14 14:17] LABS: EOS % 0.3 % (0.0-3.0); HEMATOCRIT 46.4 % (42.0-52.0); HEMOGLOBIN 16.2 g/dl (13.5-17.5); LYMPH # 1.3 10^3/uL (1.5-5.0); LYMPH % 34.4 % (24.0-44.0); MEAN CORPUSCULAR HEMOGLOBIN 32.9 pg (27.0-33.0); MEAN CORPUSCULAR HGB CONC 34.9 g/dl (32.0-36.5); MEAN CORPUSCULAR VOLUME 94.1 fl (80.0-96.0); MONO # 0.3 10^3/uL (0.0-0.8); MONO % 6.5 % (2.0-8.0); NEUTROPHILS # 2.2 10^3/uL (1.5-8.5); NEUTROPHILS % 57.5 % (36.0-66.0); PLATELET COUNT, AUTOMATED 161 10^3/uL (150-450); RED BLOOD COUNT 4.93 10^6/uL (4.30-6.10); WHITE BLOOD COUNT 3.9 10^3/uL (4.0-10.0)
== END ==
LOC: M WUC 12:24
PROVIDERS: ATTEND Physician Assistant
DX: R41.0 Disorientation, unspecified (principal); E78.5 Hyperlipidemia, unspecified; E55.9 Vitamin D deficiency, unspecified